=== PATIENT | female | born 1955 | race Caucasian/White ===

== ENCOUNTER 2019-05-30 09:51 | Day surgery (SDC) | payer OTHER ==
[2019-05-29 16:36] LABS: Absolute Lymphocytes (CBC) 2.3 K/uL (0.7-4.9); Basophils % 0.5 % (0-1.3); Eosinophils % 1.6 % (0-4.4); Hematocrit 42.7 % (36.0-45.0); Lymphocytes % 21.7 % (15.3-44.8); MPV 8.1 fL (7.6-11.3); Monocytes % 10.9 % (3.3-12.3); RBC Red Blood Cell Count 4.82 M/uL (3.86-4.86)
[2019-05-29 16:45] LABS: Potassium 4.1 mmol/L (3.5-5.1)
--- NOTE | 2019-05-30 07:35 | EKG ---
Test Date: 2019-05-29 Test Time: 16:07:56 Digital Camera Technician: SANDY MEASUREMENT RESULTS: Intervals: Rate: 79 KS: 146 QRSD: 86 QT: 398 QTc: 456 [place]: P: 54 KS: 146 QRS: 68 T: 50 INTERPRETIVE STATEMENTS: Normal sinus rhythm Nonspecific ST abnormality Abnormal ECG No previous ECG available for comparison Electronically Signed On 05-30-19 07:34:00 CDT by Fernando Quintana
--- OUTSIDE RECORDS SUMMARY | 2019-05-30 09:54 | XMS REPORT ---
:1955 [facility] Address [address] [place] [address] Dr. Moseley [address] [place] [id number] Care Team Providers Name Role Phone Unavailable Unavailable Unavailable Problems This patient has no known problems. Allergies, Adverse Reactions, Alerts This patient has no known allergies or adverse reactions. Medications This patient has no known medications.
[2019-05-30] MEDS ORDERED: Ringers Lactate 1,000 ML IV ONE (10:25)
[2019-05-30] MEDS ORDERED: BUPIVACA 0.5%/EPI 0.0005%/PF 10 ML VIAL ONE (11:29)
[2019-05-30] MEDS ORDERED: FENTANYL CITR 100 MCG/2 ML ONE ×3 (11:32→12:56)
[2019-05-30] MEDS ORDERED: PROPOFOL 200 MG/20 ML VIAL IV ONE (11:32)
[2019-05-30] MEDS ORDERED: MIDAZOLAM HCL 2 MG/2 ML INJ ONE (11:33)
[2019-05-30] MEDS ORDERED: LIDOCAINE 2% MPF 5 ML VIAL ONE (11:33)
[2019-05-30] MEDS: CEFAZOLIN/SWI 2gm 2 GM/20 ML SYR ONE ×2 (11:59→12:02)
--- NOTE | 2019-05-30 12:47 | P.BOP ---
Preoperative diagnosis: left knee pain with mechanical symptoms probable meniscal tear(s) Postoperative diagnosis: left kne medial meniscal tear with lat fraying Primary procedure: arthoscopy with debridement of mm tear/lm fraying Estimated blood loss: 10 Anesthesia: General Complications: None Transferred to: Recovery Room Condition: Good
[2019-05-30] MEDS: MEPERIDINE HCL 50 MG/ML AMP ONE ×4 (13:07→13:22)
[2019-05-30] MEDS: HYDROMORPHONE HCL 1 MG/ML INJ ONE ×2 (13:33→13:38)
[2019-05-30] MEDS ORDERED: ONDANSETRON 4 MG/2 ML VIAL ONE (14:05)
--- NOTE | 2019-05-30 20:57 | OP ---
Date of Procedure: 05/30/2019 Surgeon: Fletcher Abrams MD Preoperative Diagnosis: Left knee pain with mechanical symptoms. 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 2.Tear of medial meniscus. 3.Fraying of lateral meniscus. Procedure: Arthroscopy with debridement of medial and lateral menisci. Estimated Blood Loss: Less than 10 cc. Complications: No complications. Specimen: No pathology specimens sent. Indications For Operation: Ms. Bates is the patient who has been unfortunately troubled with her kne e for some time. She describes mechanical symptoms. X-rays do demonstrate some arthritic change and MRI does also demonstrate arthritic change as well as some changes of menisci. As she has mechanica l symptoms, risks, benefits, and alternatives to the procedure have been discussed with her. She has been told that arthroscopy is not good for degenerative articular lesion. She says she understands things presented and wished to proceed. Description Of Procedure: The patient was taken to the operating room and placed in supine position. General anesthesia was obtained by staff. Following this, a well-padded tourniquet was placed on s uperior left thigh. Left lower extremity was then prepped and draped in usual sterile fashion for th e procedure. The tourniquet was not used throughout the case. A standard superior medial arthroscop y portal was then placed with aspiration of approximately 10 cc of rather normal-appearing synovial f luid. This followed by placement of inferolateral portal. Inferolateral portal was used for placeme nt of the camera, which was placed atraumatically with 1 pass. The knee was sequentially examined in cluding suprapatellar pouch, medial and lateral gutters, medial and lateral compartments as well as n otch and patellofemoral joint. Pertinent findings included fraying and tear of the medial meniscus, also some fraying of the lateral meniscus. Also seen is chondral degenerative changes mostly of the medial side, but also the patellofemoral joint. A standard inferior medial arthroscopy portal was th en made under direct vision and the medial menisci was then debrided back to a firm well padded hook stable well contoured base. The lateral menisci were inspected. There was some corrugations of the posterior horn of lateral meniscus; however, this was probed and the probe fails to demonstrate a dis placed full meniscal tear in this area. There was also some fraying along the midportion of the body , which was then gently debrided. There was found to be cartilage loss also at the medial compartmen t at the posterior aspect of the tibia. The knee was then sequentially examined in all the above are as with no further pathology seen which is amenable to arthroscopic intervention. The inferior arthr oscopy portals were then stapled shut and superior medial arthroscopy portals were used for placement of Marcaine with epinephrine. The patient was then placed in a well-padded sterile dressing and milton en to recovery room in good condition after closure with annmarie. /DANIE Voice ID: [id number] Report ID: [id number]
== END 2019-05-30 14:49 | disposition home or self-care (01) ==
LOC: OR 09:51
PROVIDERS: ATTEND Orthopaedic Surgery
PROC: 0SQD4ZZ Repair Left Knee Joint, Percutaneous Endoscopic Approach (ICD-10-PCS; principal; 2019-05-30 12:00)
DX: M23.332 Other meniscus derangements, other medial meniscus, left knee (principal); M23.352 Other meniscus derangements, posterior horn of lateral meniscus, left knee; M94.262 Chondromalacia, left knee; J44.9 Chronic obstructive pulmonary disease, unspecified; F31.9 Bipolar disorder, unspecified
CPT/HCPCS: 29883; 93005; 85025; 80048; 36415; J2704; J3010 ×3; J2175; J1170; J0690; J2405; J2250